=== PATIENT | male | born 1960 ===

== ENCOUNTER 2017-11-16 17:02 | Emergency (ER) | payer OTHER ==
[2017-11-16] MEDS ORDERED: Lidocaine Viscous Sol 2% 15 ml UD Cup ONE (17:15)
[2017-11-16] MEDS ORDERED: Cephalexin 500 MG CAP ONE (17:45)
[2017-11-16] MEDS ORDERED: Adacel (T-DAP) 0.5 ML VIAL ONE (17:45)
== END 2017-11-16 18:00 | disposition home or self-care (01) ==
LOC: BURERS 17:02
DX: S61.212A Laceration without foreign body of right middle finger without damage to nail, initial encounter (principal); I10 Essential (primary) hypertension; E78.5 Hyperlipidemia, unspecified; F17.220 Nicotine dependence, chewing tobacco, uncomplicated; W23.0XXA Caught, crushed, jammed, or pinched between moving objects, initial encounter; Z79.899 Other long term (current) drug therapy
CPT/HCPCS: 90471; 90715; 99282